=== PATIENT | female | born 1995 | race Caucasian/White ===

== ENCOUNTER 2019-12-05 17:35 | Emergency (ER) | payer OTHER, SELFPAY ==
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
[2019-12-05 17:50] VITALS: BP 147/94; PULSE 86; RESP 18; TEMP 36.7; O2SAT 100
--- NOTE | 2019-12-05 17:55 | PC.NURSE ---
[place] [employer] at bedside at patient arrival time.
--- NOTE | 2019-12-05 17:57 | PC.NURSE ---
Call for Help contacted at this time.
--- NOTE | 2019-12-05 19:00 | PC.NURSE ---
Call for Help at bedside at this time, patient has clean set of clothing from Call for help.
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
[2019-12-05] MEDS: ACETAMINOPHEN 500 MG TABLET 1000 MG PO (20:35)
[2019-12-05] MEDS: ONDANSETRON HCL ODT 4 MG TABLET PO (20:35)
[2019-12-05] MEDS: AZITHROMYCIN 250 MG TABLET 1000 MG PO (20:36)
[2019-12-05] MEDS: metroNIDAZOLE 250 MG TABLET 2000 MG PO (20:37)
[2019-12-05] MEDS: cefTRIAXone 250 MG VIAL IM (20:38)
--- NOTE | 2019-12-05 20:43 | PC.NURSE ---
Lidocaine used for Rocephin reconstitution.
[2019-12-05 21:45] VITALS: BP 130/76; PULSE 81; RESP 19; O2SAT 100
== END 2019-12-05 21:47 | disposition home or self-care (01) ==
PROVIDERS: Emergency Provider Emergency Medicine; PCP Nurse Practitioner Family
DX: Z04.41 Encounter for examination and observation following alleged adult rape (principal); S82.892A Other fracture of left lower leg, initial encounter for closed fracture
CPT/HCPCS: 73610; 96372; 99285; A9270; J0696